=== PATIENT | female | born 1945 | race Two or more races ===

== ENCOUNTER 2021-06-10 14:18 | Inpatient (IN) | payer OTHER ==
[~2021-06-10] VITALS: Ht 162.6 cm; Wt 104.5 kg
[2021-06-10] MEDS ORDERED: ONDANSETRON HCL 4 MG/2 ML VIAL IV ONE (15:30)
[2021-06-10 17:15] LABS: Basophils # (auto) 0 10 ^3/uL (0-0.2); Basophils % (auto) 0.5 % (0.0-2.0); Eosinophils # (auto) 0 10 ^3/uL (0-0.8); Eosinophils % (auto) 0.4 % (0.0-7.0); Hematocrit 36.1 % (36.0-46.0); Hemoglobin 11.6 g/dL (12.2-16.2); Lymphocytes # (auto) 1.3 10 ^3/uL (0.4-5.4); Lymphocytes % (auto) 14.7 % (10.0-50.0); Mean Corpuscular Hemoglobin 27.9 pg (28.0-32.0); Mean Corpuscular Hgb Conc. 32.2 g/dL (32.0-36.0); Mean Corpuscular Volume 86.5 fL (80.0-100.0); Monocytes # (auto) 0.3 10 ^3/uL (0-1.3); Monocytes % (auto) 3.8 % (0.0-12.0); Neutrophils # (auto) 7.3 10 ^3/uL (1.6-8.6); Neutrophils % (auto) 80.6 % (37.0-80.0); Nucleated Red Blood Cells % 0.1 %; Red Blood Cells 4.17 10^6/uL (4.0-5.20); Red Cell Distribution Width 16.1 % (11.8-14.3)
[2021-06-10 17:21] LABS: Albumin 3.6 g/dL (3.4-5.0); Calcium 8.8 mg/dL (8.5-10.1); Potassium 3.9 mmol/L (3.5-5.1)
[2021-06-10 17:24] LABS: BUN/Creatinine Ratio 15.6; Bilirubin, Total 0.2 mg/dL (0.2-1.0); Total Protein 7.7 g/dL (6.4-8.2)
[2021-06-10 18:11] LABS: Urine Bacteria FEW /hpf (None Seen); Urine Blood Negative /uL (Negative); Urine Specific Gravity 1.011 (1.001-1.035); Urine WBC 1 /hpf (0 - 5)
[2021-06-10] MEDS ORDERED: ONDANSETRON HCL 4 MG/2 ML VIAL IV PRN (22:15)
[2021-06-10] MEDS ORDERED: ACETAMINOPHEN 325 MG TAB PO PRN (22:15)
[2021-06-10] MEDS ORDERED: DEXTROSE (50%) 50ML SYRG IV PRN (22:15)
[2021-06-10] MEDS ORDERED: HYDROcodone-ACET 5/325MG TAB PO PRN (22:15)
[2021-06-10] MEDS ORDERED: DOCUSATE SOD 100 MG CAP PO PRN (22:15)
[2021-06-10] MEDS ORDERED: MORPHINE SULFATE INJECTION 2 MG/ML SYRG IV PRN (23:45)
[2021-06-10] MEDS ORDERED: NITROGLYCERIN 0.4 MG SL TAB SL PRN (23:45)
[2021-06-11 03:59] VITALS: BP 132/70
[2021-06-11 05:00] VITALS: BP 132/70
[2021-06-11 05:15] LABS: Basophils # (auto) 0 10 ^3/uL (0-0.2); Basophils % (auto) 0.4 % (0.0-2.0); Eosinophils # (auto) 0.2 10 ^3/uL (0-0.8); Eosinophils % (auto) 1.8 % (0.0-7.0); Hematocrit 32.4 % (36.0-46.0); Hemoglobin 10.4 g/dL (12.2-16.2); Lymphocytes # (auto) 2.5 10 ^3/uL (0.4-5.4); Lymphocytes % (auto) 30.8 % (10.0-50.0); Mean Corpuscular Hemoglobin 27.8 pg (28.0-32.0); Mean Corpuscular Hgb Conc. 32.2 g/dL (32.0-36.0); Mean Corpuscular Volume 86.3 fL (80.0-100.0); Monocytes # (auto) 0.5 10 ^3/uL (0-1.3); Monocytes % (auto) 6.2 % (0.0-12.0); Neutrophils % (auto) 60.8 % (37.0-80.0); Nucleated Red Blood Cells % 0.1 %; Red Blood Cells 3.76 10^6/uL (4.0-5.20); Red Cell Distribution Width 16.2 % (11.8-14.3); White Blood Cell 8.2 10^3/uL (4.4-10.8)
[2021-06-11 05:53] LABS: Albumin 3.1 g/dL (3.4-5.0); Calcium 8.8 mg/dL (8.5-10.1); Potassium 3.6 mmol/L (3.5-5.1)
[2021-06-11 05:59] LABS: BUN/Creatinine Ratio 20.3; Bilirubin, Total 0.3 mg/dL (0.2-1.0); Total Protein 6.8 g/dL (6.4-8.2)
[2021-06-11] MEDS: InsuLIN REG 1unit/0.01ml Soln (100units/ml) SC SCH ×4 (07:00→22:35)
[2021-06-11] MEDS: SODIUM CHLOR 0.9% PF (SALINE LOCK) 10ML VIAL/SYR IV SCH ×3 (07:08→22:29)
[2021-06-11] MEDS: LEVOTHYROXINE SODIUM 50 MCG TAB PO SCH (07:08)
[2021-06-11] MEDS: ACCU-CHEK COMFORT CURVE STRIP VI SCH ×4 (07:09→22:30)
[2021-06-11 08:30] VITALS: BP 109/76
[2021-06-11] MEDS ORDERED: ZINC SULFATE 220mg CAP or TAB PO SCH (10:00)
[2021-06-11] MEDS: ASCORBIC ACID 500 MG TAB PO SCH ×2 (10:00→22:30)
[2021-06-11] MEDS: ENOXAPARIN SOD 40 MG/0.4 ML SYRINGE SC SCH (10:00)
[2021-06-11] MEDS ORDERED: amLODIPine BESYLATE 5 MG TAB PO SCH (10:00)
[2021-06-11] MEDS: MULTIPLE VITAMIN TAB PO SCH (10:01)
[2021-06-11] MEDS: FAMOTIDINE (10MG/ML) 2ML VL IV SCH (10:01)
[2021-06-11 12:30] VITALS: BP 114/64
[2021-06-11] MEDS ORDERED: METF-929 PO (14:59)
[2021-06-11] MEDS ORDERED: FERR-7 PO (14:59)
[2021-06-11] MEDS ORDERED: LOSA100T33 PO (14:59)
[2021-06-11] MEDS ORDERED: OMEP20TA PO (14:59)
[2021-06-11] MEDS ORDERED: CHOL20007 OR (14:59)
[2021-06-11] MEDS ORDERED: ASPI-543 PO (14:59)
[2021-06-11] MEDS ORDERED: LEVO125T7 PO (14:59)
[2021-06-11] MEDS ORDERED: AML5T PO (14:59)
[2021-06-11] MEDS ORDERED: GABA100C9 PO (14:59)
[2021-06-11] MEDS ORDERED: PRAV20TA3 PO (14:59)
[2021-06-11] MEDS ORDERED: LATA0.0019 OP (15:02)
[2021-06-11 18:03] VITALS: BP 133/72
[2021-06-11] MEDS ORDERED: ENOXAPARIN SOD 40 MG/0.4 ML SYRINGE SC ONE (18:45)
[2021-06-11] MEDS ORDERED: LORazepam 2MG/ML-1ML VIAL IV PRN (18:45)
[2021-06-11 20:22] LABS: Cholesterol 127 mg/dL (< 200); HDL Cholesterol 41 mg/dL (40-59); LDL Cholesterol 69 mg/dL (< 100); Triglycerides 90 mg/dL (< 150)
[2021-06-11] MEDS: ATORVASTATIN 20 MG TAB PO SCH (22:30)
[2021-06-11 22:49] VITALS: BP 136/74
[2021-06-12] MEDS: InsuLIN REG 1unit/0.01ml Soln (100units/ml) SC SCH ×4 (06:23→22:47)
[2021-06-12] MEDS: ACCU-CHEK COMFORT CURVE STRIP VI SCH ×4 (06:23→22:42)
[2021-06-12] MEDS: SODIUM CHLOR 0.9% PF (SALINE LOCK) 10ML VIAL/SYR IV SCH ×3 (06:23→22:41)
[2021-06-12] MEDS: LEVOTHYROXINE SODIUM 50 MCG TAB PO SCH (06:24)
[2021-06-12] MEDS: FAMOTIDINE (10MG/ML) 2ML VL IV SCH (08:08)
[2021-06-12] MEDS: ASPirin-EC 81 mg tab PO SCH (08:09)
[2021-06-12] MEDS: ASCORBIC ACID 500 MG TAB PO SCH ×2 (08:09→22:42)
[2021-06-12] MEDS: MULTIPLE VITAMIN TAB PO SCH (08:09)
[2021-06-12] MEDS: ENOXAPARIN SOD 40 MG/0.4 ML SYRINGE SC SCH (08:19)
[2021-06-12 09:00] VITALS: BP 133/61
[2021-06-12 16:48] VITALS: BP 137/61
[2021-06-12 22:00] VITALS: BP 146/59
[2021-06-12] MEDS: ATORVASTATIN 20 MG TAB PO SCH (22:41)
[2021-06-13 05:00] VITALS: BP 150/63
[2021-06-13] MEDS: SODIUM CHLOR 0.9% PF (SALINE LOCK) 10ML VIAL/SYR IV SCH ×3 (06:03→22:10)
[2021-06-13] MEDS: ACCU-CHEK COMFORT CURVE STRIP VI SCH ×4 (06:45→22:11)
[2021-06-13] MEDS: InsuLIN REG 1unit/0.01ml Soln (100units/ml) SC SCH ×5 (06:45→22:12)
[2021-06-13] MEDS: LEVOTHYROXINE SODIUM 50 MCG TAB PO SCH (06:48)
[2021-06-13 09:00] VITALS: BP 131/76
[2021-06-13] MEDS: FAMOTIDINE (10MG/ML) 2ML VL IV SCH (11:29)
[2021-06-13] MEDS: ASPirin-EC 81 mg tab PO SCH (11:29)
[2021-06-13] MEDS: MULTIPLE VITAMIN TAB PO SCH (11:30)
[2021-06-13] MEDS: ASCORBIC ACID 500 MG TAB PO SCH ×2 (11:30→22:11)
[2021-06-13] MEDS: ENOXAPARIN SOD 40 MG/0.4 ML SYRINGE SC SCH (11:30)
[2021-06-13 13:00] VITALS: BP 138/74
[2021-06-13 17:00] VITALS: BP 142/68
[2021-06-13 22:00] VITALS: BP 143/70
[2021-06-13] MEDS: ATORVASTATIN 20 MG TAB PO SCH (22:10)
[2021-06-13 23:32] VITALS: BP 143/70
== END 2021-06-14 00:20 | disposition home or self-care (01) | DRG 312 ==
LOC: ER 14:18 → EDBD 14:18 → EDSEX 14:18 → TELE 23:37 → TELE-CENTR 06-11 01:30
PROVIDERS: ADMIT Nurse Practitioner Family; ATTEND Internal Medicine
DX: R55 Syncope and collapse (principal); Z68.41 Body mass index [BMI] 40.0-44.9, adult; E11.9 Type 2 diabetes mellitus without complications; E66.01 Morbid (severe) obesity due to excess calories; E78.5 Hyperlipidemia, unspecified; Z20.822 Contact with and (suspected) exposure to COVID-19; R42 Dizziness and giddiness; G47.10 Hypersomnia, unspecified; Z79.82 Long term (current) use of aspirin; Z79.899 Other long term (current) drug therapy; Z80.3 Family history of malignant neoplasm of breast; Z82.3 Family history of stroke; Z82.49 Family history of ischemic heart disease and other diseases of the circulatory system; Z83.3 Family history of diabetes mellitus
CPT/HCPCS: 36415; 70450; 70551; 71045; 80053; 80061; 81001; 82962; 83036; 83735; 84443; 84484; 85025; 85379; 87426; 93005; 93306; 93886; 95819; 96374; G0378; J1815; J2405; J3490

== ENCOUNTER 2022-11-12 09:00 | Emergency (ER) | payer OTHER ==
[~2022-11-12] VITALS: Ht 170.2 cm; Wt 102.4 kg
[~2022-11-12 09:00] MED LIST: AML5T PO; ASPI-543 PO; CHOL20007 OR; FERR-7 PO; GABA-1308 PO; LATA0.008 OP; LEVO125T7 PO; LOSA100T33 PO; METF-929 PO; OMEP20TA PO; PRAV20TA3 PO
[2022-11-12] MEDS ORDERED: BENZ100C97 PO (10:43)
[2022-11-12] MEDS ORDERED: GUAI600T23 PO (10:43)
[2022-11-12] MEDS ORDERED: ALBUTEROL SULF 2.5 MG/0.5ML(0.5%) NEB SOLN NEB ONE (10:45)
[2022-11-12] MEDS ORDERED: IPRATROPIUM BROM 0.5 MG/2.5ML INH SOL NEB ONE (10:45)
[2022-11-12 11:15] VITALS: BP 140/75
== END 2022-11-12 12:01 | disposition home or self-care (01) ==
LOC: ER 09:00
DX: J06.9 Acute upper respiratory infection, unspecified (principal); E11.9 Type 2 diabetes mellitus without complications; I10 Essential (primary) hypertension
CPT/HCPCS: 71046; 94640; 99283; J7644